=== PATIENT | female | born 1960 | race Caucasian/White ===

== ENCOUNTER → 2017-01-07 | Outpatient (CLI) | payer MEDICAID ==
[~2017-01-07] MED LIST: CORICIDIN HBP1 EAC3 PO; CYMBALTA60 MG PO; GLUCOPHAGE500 MG PO; LIPITOR20 MG PO; PREVALITE PACKET4 GM PO; PRILOSEC20 MG PO; PRINIVIL20 MG PO; TRIAMCINOLONE A15 GM TOP; TRICOR145 MG PO; ULTRAM50 MG PO; ZOFRAN4 MG PO; ZYRTEC10 MG PO
== END | disposition short-term general hospital (02) ==
LOC: CLORTH 09:01
DX: Z47.89 Encounter for other orthopedic aftercare (principal)

== ENCOUNTER 2017-02-07 03:16 | Emergency (ER) | payer MEDICAID ==
[~2017-02-07] VITALS: Ht 165.1 cm; Wt 77.1 kg
== END 2017-02-07 07:55 | disposition short-term general hospital (02) ==
LOC: ER 03:16
DX: R10.31 Right lower quadrant pain (principal); K21.9 Gastro-esophageal reflux disease without esophagitis; I10 Essential (primary) hypertension; F31.9 Bipolar disorder, unspecified; E78.9 Disorder of lipoprotein metabolism, unspecified; E78.1 Pure hyperglyceridemia; Z88.2 Allergy status to sulfonamides; Z88.8 Allergy status to other drugs, medicaments and biological substances
CPT/HCPCS: J2270; J2405; Q9963; Q9967

== ENCOUNTER 2017-03-13 04:46 | Emergency (ER) | payer MEDICAID ==
[~2017-03-13] VITALS: Ht 165.1 cm; Wt 78.0 kg
== END 2017-03-13 07:00 | disposition short-term general hospital (02) ==
LOC: ER 04:46
DX: M79.1 Myalgia (principal); Z88.2 Allergy status to sulfonamides; Z88.8 Allergy status to other drugs, medicaments and biological substances